=== PATIENT | male | born 1945 | race Caucasian/White ===

== ENCOUNTER 2017-12-27 09:52 | Emergency (ER) | payer MEDICARE, BC ==
[~2017-12-27] VITALS: Ht 182.9 cm; Wt 100.0 kg
[2017-12-27] MEDS ORDERED: SODIUM CHLORIDE FLUSH 10ML SYR IVF ONE (10:30)
[2017-12-27] MEDS ORDERED: MECLIZINE CHEWABLE 25 MG TAB ONE ×3 (10:38→11:34)
[2017-12-27] MEDS ORDERED: ONDANSETRON ODT 4 MG ONE ×2 (10:39→10:55)
[2017-12-27 10:41] LABS: BASOPHILS # (AUTO) 0.03 x10^3/uL (0-0.1); BASOPHILS % (AUTO) 0 % (0-1); EOSINOPHILS # (AUTO) 0.03 x10^3/uL (0-0.4); EOSINOPHILS % (AUTO) 0 % (1-7); LYMPHOCYTES # (AUTO) 1.08 x10^3/uL (1-3.4); LYMPHOCYTES % (AUTO) 12 % (22-44); MD NO; MEAN CORPUSCULAR HEMOGLOBIN 31.9 pg (27.5-34.5); MEAN CORPUSCULAR VOLUME 93.8 fL (81-97); MEAN PLATELET VOLUME 6.8 fL (7.4-10.4); MONOCYTES % (AUTO) 7 % (2-9); NEUTROPHILS # (AUTO) 7.29 x10^3/uL (1.8-6.8); NEUTROPHILS % (AUTO) 81 % (42-75); PLATELET COUNT 312 x10^3/uL (130-400); RED BLOOD COUNT 4.62 x10^6/uL (4.38-5.82); RED CELL DISTRIBUTION WIDTH 13.6 % (9.4-14.8)
[2017-12-27 10:51] LABS: ALANINE AMINOTRANSFERASE 30 U/L (12-78); ALBUMIN 4.1 g/dL (3.4-5.0); ANION GAP 6 mmol/L (5-15); CALCIUM 8.7 mg/dL (8.5-10.1); CHLORIDE 105 mmol/L (98-107); CREATININE 1.01 mg/dL (0.7-1.3)
[2017-12-27 10:57] LABS: ALKALINE PHOSPHATASE 40 U/L (45-117); BILIRUBIN,TOTAL 1.2 mg/dL (0.2-1.0); CREATINE KINASE, TOTAL 99 U/L (39-308); TOTAL PROTEIN 7.5 g/dL (6.4-8.2); TROPONIN I < 0.015 ng/mL (0.000-0.045)
[2017-12-27] MEDS ORDERED: MECLIZINE CHEWABLE 25 MG TAB PO ONE (11:00)
[2017-12-27] MEDS ORDERED: ONDANSETRON ODT 4 MG PO ONE (11:00)
[2017-12-27 12:04] LABS: MICROSCOPIC AUTO
[2017-12-27 12:13] LABS: CULTURE INDICATED? YES
[2017-12-27 13:16] VITALS: BP 169/93
== END 2017-12-27 13:21 | disposition home or self-care (01) ==
LOC: ED 13:04
DX: R42 Dizziness and giddiness (principal); I10 Essential (primary) hypertension; E11.9 Type 2 diabetes mellitus without complications; R82.99 Other abnormal findings in urine
CPT/HCPCS: 36415; 70450; 71045; 80053; 81001; 82550; 83735; 84443; 84484; 85025; 87077; 87086; 93005; 99285; Q0162

== ENCOUNTER → 2018-03-22 | Outpatient (CLI) | payer MEDICARE, BC | END | disposition home or self-care (01) | LOC: CFH 08:45 | PROVIDERS: ATTEND Family Medicine | DX: M54.16 Radiculopathy, lumbar region (principal); M51.37 Other intervertebral disc degeneration, lumbosacral region; M48.061 Spinal stenosis, lumbar region without neurogenic claudication; Z79.52 Long term (current) use of systemic steroids | CPT/HCPCS: 72148; 77080 ==

== ENCOUNTER 2018-04-29 15:33 | Inpatient (IN) | payer MEDICARE ==
[~2018-04-29] VITALS: Ht 182.9 cm; Wt 101.2 kg
[2018-04-29] MEDS ORDERED: PRED1TAB PO (15:36)
[2018-04-29] MEDS ORDERED: GABA300C10 PO (15:37)
[2018-04-29] MEDS ORDERED: TICAGRELOR 90 MG TABLET ONE (15:40)
[2018-04-29] MEDS ORDERED: BIVALIRUDIN 250 MG ONE ×2 (15:40→16:34)
[2018-04-29] MEDS ORDERED: LIDOCAINE-MPF 1%, 5ML ONE (15:40)
[2018-04-29] MEDS ORDERED: FENTANYL PF 100 MCG/2ML ONE ×2 (15:40→16:14)
[2018-04-29] MEDS ORDERED: HEPARIN 1,000 UNITS/ML, 10ML ONE (15:40)
[2018-04-29] MEDS ORDERED: MIDAZOLAM 1 MG/ML, 5ML ONE (15:40)
[2018-04-29 15:50] LABS: BASOPHILS % (AUTO) 1 % (0-1); EOSINOPHILS % (AUTO) 1 % (1-7); LYMPHOCYTES # (AUTO) 2.24 x10^3/uL (1-3.4); LYMPHOCYTES % (AUTO) 20 % (22-44); MD NO; MEAN CORPUSCULAR HEMOGLOBIN 30.4 pg (27.5-34.5); MEAN CORPUSCULAR HGB CONC 32.9 g/dL (33.2-36.2); MEAN CORPUSCULAR VOLUME 92.4 fL (81-97); MEAN PLATELET VOLUME 6.8 fL (7.4-10.4); MONOCYTES % (AUTO) 8 % (2-9); NEUTROPHILS # (AUTO) 7.82 x10^3/uL (1.8-6.8); NEUTROPHILS % (AUTO) 70 % (42-75); PLATELET COUNT 523 x10^3/uL (130-400); RED BLOOD COUNT 4.06 x10^6/uL (4.38-5.82); RED CELL DISTRIBUTION WIDTH 13.6 % (9.4-14.8)
[2018-04-29 15:55] LABS: INTERNATIONAL NORMALIZED RATIO 0.92 (0.93-1.1); PROTHROMBIN TIME 9.5 Seconds (9.6-11.5)
[2018-04-29] MEDS ORDERED: SODIUM CHLORIDE FLUSH 10ML SYR IVF PRN (16:00)
[2018-04-29] MEDS ORDERED: ZOLPIDEM 5MG TABLET PO PRN (16:30)
[2018-04-29] MEDS ORDERED: ACETAMINOPHEN 325 MG TABLET PO PRN (16:30)
[2018-04-29] MEDS ORDERED: ASPIRIN 325 MG TABLET EC PO ONE (16:30)
[2018-04-29] MEDS ORDERED: SODIUM CHLORIDE 0.9% 1,000 ML IV SCH (16:30)
[2018-04-29] MEDS ORDERED: ONDANSETRON 2MG/ML, 2ML IVPush PRN (16:30)
[2018-04-29] MEDS ORDERED: BISACODYL 10 MG SUPP PR PRN (16:30)
[2018-04-29] MEDS: SODIUM CHLORIDE 0.9% 1,000 ML IV SCH (16:45)
[2018-04-29] MEDS ORDERED: BIVALIRUDIN 250 MG in DEXTROSE 5% 100 ML IV SCH (16:45)
[2018-04-29] MEDS: PLEASE ENTER WEIGHT MC SCH ×2 (17:00→23:33)
[2018-04-29 17:14] LABS: TROPONIN I 0.089 ng/mL (0.000-0.045)
[2018-04-29] MEDS: PLEASE ENTER HEIGHT AND WEIGHT MC SCH ×2 (17:30→23:33)
[2018-04-29] MEDS ORDERED: OXYcodone/APAP 5/325MG TABLET PO PRN (18:00)
[2018-04-29] MEDS: METOPROLOL TARTRATE 25 MG TABLET PO SCH (18:28)
[2018-04-29] MEDS ORDERED: CALCIUM CARBONATE 500 MG TAB.CHEW ONE (19:32)
[2018-04-29] MEDS: CALCIUM CARBONATE 500 MG TAB.CHEW PO PRN (19:35)
[2018-04-29] MEDS: ATORVASTATIN 80 MG TABLET PO SCH (20:43)
[2018-04-29] MEDS: TICAGRELOR 90 MG TABLET PO SCH (20:43)
[2018-04-29] MEDS: CAPTOPRIL 12.5 MG TABLET PO SCH (20:43)
[2018-04-29] MEDS: ENOXAPARIN 40 MG/0.4 ML SQ SCH (20:44)
[2018-04-30] MEDS: SODIUM CHLORIDE 0.9% 1,000 ML IV SCH (00:45)
[2018-04-30] MEDS: CALCIUM CARBONATE 500 MG TAB.CHEW PO PRN (01:47)
[2018-04-30 04:00] VITALS: BP 93/57
[2018-04-30 04:22] LABS: BASOPHILS # (AUTO) 0.04 x10^3/uL (0-0.1); BASOPHILS % (AUTO) 0 % (0-1); EOSINOPHILS # (AUTO) 0.05 x10^3/uL (0-0.4); EOSINOPHILS % (AUTO) 1 % (1-7); LYMPHOCYTES % (AUTO) 14 % (22-44); MD NO; MEAN CORPUSCULAR HEMOGLOBIN 31.2 pg (27.5-34.5); MEAN CORPUSCULAR HGB CONC 33.6 g/dL (33.2-36.2); MEAN CORPUSCULAR VOLUME 92.8 fL (81-97); MEAN PLATELET VOLUME 6.9 fL (7.4-10.4); MONOCYTES # (AUTO) 0.66 x10^3/uL (0.2-0.8); MONOCYTES % (AUTO) 7 % (2-9); NEUTROPHILS # (AUTO) 7.98 x10^3/uL (1.8-6.8); NEUTROPHILS % (AUTO) 79 % (42-75); PLATELET COUNT 430 x10^3/uL (130-400); RED BLOOD COUNT 3.78 x10^6/uL (4.38-5.82); RED CELL DISTRIBUTION WIDTH 13.7 % (9.4-14.8)
[2018-04-30 04:26] LABS: ANION GAP 9 mmol/L (5-15); CALCIUM 8.7 mg/dL (8.5-10.1); CHLORIDE 105 mmol/L (98-107); CHOLESTEROL, TOTAL 152 mg/dL (140-239); CREATININE 0.82 mg/dL (0.7-1.3)
[2018-04-30 04:29] LABS: HDL CHOL % 33 % (26-37); HDL CHOLESTEROL (DIRECT) 50 mg/dL (40-60); LDL CHOLESTEROL,CALCULATED 84 mg/dL (54-169); LDL/HDL RATIO 1.7 (0.5-3.0); TRIGLYCERIDES 91 mg/dL (50-200); VLDL CHOLESTEROL 18 mg/dL (0-25)
[2018-04-30] MEDS: METOPROLOL TARTRATE 25 MG TABLET PO SCH ×2 (06:00→17:51)
[2018-04-30] MEDS: ASPIRIN 81 MG TABLET EC PO SCH (07:32)
[2018-04-30] MEDS: TICAGRELOR 90 MG TABLET PO SCH ×2 (07:33→21:11)
[2018-04-30] MEDS: CAPTOPRIL 12.5 MG TABLET PO SCH ×3 (08:28→21:12)
[2018-04-30] MEDS ORDERED: LORazepam 1MG TABLET PO ONE (08:30)
[2018-04-30] MEDS ORDERED: ASPIRIN 325 MG TABLET EC PO SCH (09:00)
[2018-04-30] MEDS: GABAPENTIN 300 MG CAPSULE PO SCH (10:22)
[2018-04-30 12:17] VITALS: BP 106/70
[2018-04-30 20:05] VITALS: BP 107/67
[2018-04-30] MEDS: ATORVASTATIN 80 MG TABLET PO SCH (21:12)
[2018-04-30] MEDS: ENOXAPARIN 40 MG/0.4 ML SQ SCH (21:12)
[2018-05-01 01:19] VITALS: BP 95/56
[2018-05-01] MEDS: METOPROLOL TARTRATE 25 MG TABLET PO SCH (05:56)
[2018-05-01 07:16] VITALS: BP 106/69
[2018-05-01] MEDS: ASPIRIN 81 MG TABLET EC PO SCH (08:59)
[2018-05-01] MEDS: TICAGRELOR 90 MG TABLET PO SCH (08:59)
[2018-05-01] MEDS: CAPTOPRIL 12.5 MG TABLET PO SCH (08:59)
[2018-05-01] MEDS: GABAPENTIN 300 MG CAPSULE PO SCH (08:59)
[2018-05-01] MEDS ORDERED: LISI5TAB7 PO (09:03)
[2018-05-01] MEDS ORDERED: METO25TA2 PO (09:03)
[2018-05-01] MEDS ORDERED: ATOR-2 PO (09:03)
[2018-05-01] MEDS ORDERED: ASPI-621 PO (09:03)
[2018-05-01] MEDS ORDERED: NITR0.4T28 SL (09:03)
[2018-05-01] MEDS ORDERED: TICA90TA PO (09:03)
[2018-05-01 12:29] VITALS: BP 105/72
== END 2018-05-01 14:25 | disposition home or self-care (01) | DRG 246 ==
LOC: EDBD → MERGE 15:33 → ED 15:50 → EDIP 15:51 → CCU 16:47 → 5SO 04-30 10:03 → DCLOUNGE 05-01 14:02
PROVIDERS: ADMIT Internal Medicine Cardiovascular Disease; ATTEND Internal Medicine Cardiovascular Disease
PROC: 027034Z Dilation of Coronary Artery, One Artery with Drug-eluting Intraluminal Device, Percutaneous Approach (ICD-10-PCS; principal; 2018-04-29)
PROC: B2111ZZ Fluoroscopy of Multiple Coronary Arteries using Low Osmolar Contrast (ICD-10-PCS; 2018-04-29)
PROC: 4A023N7 Measurement of Cardiac Sampling and Pressure, Left Heart, Percutaneous Approach (ICD-10-PCS; 2018-04-29)
PROC: 02703ZZ Dilation of Coronary Artery, One Artery, Percutaneous Approach (ICD-10-PCS; 2018-04-29)
DX: I21.19 ST elevation (STEMI) myocardial infarction involving other coronary artery of inferior wall (principal); I50.33 Acute on chronic diastolic (congestive) heart failure; I10 Essential (primary) hypertension; F40.240 Claustrophobia; E78.5 Hyperlipidemia, unspecified; M35.3 Polymyalgia rheumatica; I25.10 Atherosclerotic heart disease of native coronary artery without angina pectoris; R00.1 Bradycardia, unspecified; Z79.899 Other long term (current) drug therapy; Z79.82 Long term (current) use of aspirin; Z72.89 Other problems related to lifestyle; I11.0 Hypertensive heart disease with heart failure
CPT/HCPCS: 0399T; 36415; 71045; 80047; 80048; 80061; 83735; 84484; 85025; 85610; 85730; 87081; 93005; 93306; 93454; 99156; 99157; 99285; C1760; C1769; C1894; G0378; J0583; J1644; J1650; J2250; J3010; J7512; C1725; C1874; C1887; Q9967

== ENCOUNTER → 2018-05-17 | Outpatient (CLI) | payer MEDICARE, BC ==
[~2018-05-17] MED LIST: ASPI-621 PO; ATOR-2 PO; GABA300C10 PO; LISI5TAB7 PO; METO25TA2 PO; NITR0.4T28 SL; PRED1TAB PO; TICA90TA PO
== END | disposition home or self-care (01) ==
LOC: CFH 09:43
PROVIDERS: ATTEND Neurological Surgery
DX: M43.26 Fusion of spine, lumbar region (principal); M47.897 Other spondylosis, lumbosacral region; M48.062 Spinal stenosis, lumbar region with neurogenic claudication
CPT/HCPCS: 72100

== ENCOUNTER → 2018-06-12 | Outpatient (CLI) | payer MEDICARE, BC ==
[~2018-06-12] MED LIST changes: -ASPI-621 PO; +ASPI81TA45 PO
== END | disposition home or self-care (01) ==
LOC: CFH 08:35
PROVIDERS: ATTEND Internal Medicine Cardiovascular Disease
DX: I22.1 Subsequent ST elevation (STEMI) myocardial infarction of inferior wall (principal)
CPT/HCPCS: 93306